=== PATIENT | female | born 1965 | race African-American/Black ===

== ENCOUNTER → 2016-11-14 | Outpatient (CLI) | payer BC ==
--- NOTE | 2016-11-14 13:37 | RAD ---
Left lower extremity venous ultrasound, 11/14/2016 : History: Left calf and knee pain Duplex evaluation including grayscale, color flow and spectral Doppler analysis was performed. The femoral and popliteal veins show no filling defects to suggest DVT. The visualized calf veins are unremarkable. IMPRESSION: There is no sonographic evidence of deep vein thrombosis in the left lower extremity
== END | disposition home or self-care (01) ==
LOC: US 12:01
PROVIDERS: ATTEND Nurse Practitioner Family
DX: M79.605 Pain in left leg (principal)
CPT/HCPCS: 93971

== ENCOUNTER 2017-05-11 19:15 | Emergency (ER) | payer BC | END 2017-05-11 20:20 | disposition left against medical advice (07) | LOC: ER 19:15 | DX: M79.605 Pain in left leg (principal); Z53.21 Procedure and treatment not carried out due to patient leaving prior to being seen by health care provider ==

== ENCOUNTER → 2017-05-14 | Outpatient (CLI) | payer BC ==
--- NOTE | 2017-05-14 13:25 | KCIC ---
Examination: 3 views of the left knee HISTORY: History of left knee pain for 2 months COMPARISON: None available Findings: The alignment of the knee joint grossly appears unremarkable. There is no acute fracture or dislocation identified. No significant knee joint effusion. IMPRESSION: No acute osseous findings Electronically signed by: Bernardino Jama MD (05/14/2017 1:22 PM) [facility]
== END | disposition home or self-care (01) ==
LOC: KCIC 12:53
PROVIDERS: ATTEND Family Medicine
DX: M25.562 Pain in left knee (principal)
CPT/HCPCS: 73562

== ENCOUNTER 2017-06-23 12:13 | Inpatient (IN) | payer BC ==
[~2017-06-23] VITALS: Ht 165.1 cm; Wt 106.7 kg
[2017-06-23] VITALS (9 sets, daily range): BP systolic 111–143; BP diastolic 73–97
[2017-06-23 12:36] LABS: BASO # 0.1 x10^3/uL (0.0-0.2); BASO % 1 % (0-3); EOS % 2 % (0-3); HEMATOCRIT 40.2 % (36.0-47.0); HEMOGLOBIN 13.5 g/dL (12.0-15.5); LYMPH # 3.1 x10^3/uL (1.0-4.8); LYMPH % 39 % (24-48); MEAN CORPUSCULAR HEMOGLOBIN 30 pg (25-35); MEAN CORPUSCULAR HGB CONC 34 g/dL (31-37); MEAN CORPUSCULAR VOLUME 90 fL (79-100); MONO % 6 % (0-9); NEUT % 53 % (31-73); PLATELET COUNT 319 x10^3/uL (140-400); RED BLOOD COUNT 4.48 x10^6/uL (3.50-5.40); RED CELL DISTRIBUTION WIDTH 14.5 % (11.5-14.5); WHITE BLOOD COUNT 7.9 x10^3/uL (4.0-11.0)
--- NOTE | 2017-06-23 12:43 | PHYS DOC ---
Past Medical History Past Medical History: Hypertension Past Medical History Hx of atrial fibrillation Past Surgical History: Tubal ligation Alcohol Use: None Drug Use: None Adult General Chief Complaint Chief Complaint: RAPID HEART RATE HPI HPI Patient is a 51-year-old female who presents with a rapid heart rate. This is a pleasant 51-year-old female who was remote history of atrial fibrillation however is not anticoagulated and usually is in a regular rate she thinks. For the last 7 days she has been feeling a fast heart rate. She takes blood pressure medications including metoprolol however did not take that today. She has had some mild chest pain with it. Some mild shortness of breath. She has been taking lisinopril and amlodipine. She did take an aspirin today. She will see her family doctor today who found her to be in atrial fibrillation with a rapid ventricular response with a heart rate of 140. She was transferred here. The palpitations have been constant. No exacerbating or relieving factors. No radiation. She is not having chest pain currently. Review of Systems Review of Systems Constitutional: Denies fever or chills Eyes: Denies change in visual acuity, redness, or eye pain HENT: Denies nasal congestion or sore throat Respiratory: Denies cough Cardiovascular: No additional information not addressed in HPI GI: Denies abdominal pain, nausea, vomiting, bloody stools or diarrhea : Denies dysuria or hematuria Musculoskeletal: Denies back pain or joint pain; denies peripheral edema. Integument: Denies rash or skin lesions Neurologic: Denies headache, focal weakness or sensory changes Endocrine: Denies polyuria or polydipsia Family History Family History Non contributory Current Medications Current Medications Current Medications Medications (Trade) Dose Ordered Sig/Camacho Start Time Stop Time Status Last Admin Dose Admin Diltiazem HCl 125 mg/Dextrose 125 ml @ 0 mls/hr CONT PRN 06/23/17 12:30 06/23/17 20:36 10 MLS/HR Allergies Allergies Allergies Coded Allergies Type Severity Reaction Last Updated Verified No Known Drug Allergies 06/23/17 No Physical Exam Physical Exam Constitutional: Well developed, well nourished, no acute distress, non-toxic appearance. HENT: Normocephalic, atraumatic, bilateral external ears normal, oropharynx moist, no oral exudates, nose normal. Eyes: PERRLA, EOMI, conjunctiva normal, no discharge. Neck: Normal range of motion, no tenderness, supple, no stridor. Cardiovascular: Irregularly irregular tachycardia with a rate over 100. Lungs & Thorax: Bilateral breath sounds clear to auscultation Abdomen: Bowel sounds normal, soft, no tenderness, no masses, no pulsatile masses. Skin: Warm, dry, no erythema, no rash. Back: No tenderness, no CVA tenderness. Extremities: No tenderness, no cyanosis, no clubbing, ROM intact, no edema. Neurologic: Alert and oriented X 3, normal motor function, normal sensory function, no focal deficits noted. Psychologic: Affect normal, judgement normal, mood normal. Current Patient Data Vital Signs Vital Signs Date Time Temp Pulse Resp B/P (MAP) Pulse Ox O2 Delivery O2 Flow Rate FiO2 06/23/17 13:20 148 16 139/101 (114) 96 Room Air 06/23/17 12:18 98.0 98.0 Lab Values Laboratory Tests Test 06/23/17 12:23 White Blood Count 7.9 x10^3/uL (4.0-11.0) Red Blood Count 4.48 x10^6/uL (3.50-5.40) Hemoglobin 13.5 g/dL (12.0-15.5) Hematocrit 40.2 % (36.0-47.0) Mean Corpuscular Volume 90 fL (79-100) Mean Corpuscular Hemoglobin 30 pg (25-35) Mean Corpuscular Hemoglobin Concent 34 g/dL (31-37) Red Cell Distribution Width 14.5 % (11.5-14.5) Platelet Count 319 x10^3/uL (140-400) Neutrophils (%) (Auto) 53 % (31-73) Lymphocytes (%) (Auto) 39 % (24-48) Monocytes (%) (Auto) 6 % (0-9) Eosinophils (%) (Auto) 2 % (0-3) Basophils (%) (Auto) 1 % (0-3) Neutrophils # (Auto) 4.2 x10^3uL (1.8-7.7) Lymphocytes # (Auto) 3.1 x10^3/uL (1.0-4.8) Monocytes # (Auto) 0.4 x10^3/uL (0.0-1.1) Eosinophils # (Auto) 0.2 x10^3/uL (0.0-0.7) Basophils # (Auto) 0.1 x10^3/uL (0.0-0.2) Sodium Level 142 mmol/L (136-145) Potassium Level 3.7 mmol/L (3.5-5.1) Chloride Level 106 mmol/L (98-107) Carbon Dioxide Level 30 mmol/L (21-32) Anion Gap 6 (6-14) Blood Urea Nitrogen 14 mg/dL (7-20) Creatinine 0.8 mg/dL (0.6-1.0) Estimated GFR (Cockcroft-Gault) 92.2 BUN/Creatinine Ratio 18 (6-20) Glucose Level 112 mg/dL (70-99) H Calcium Level 8.8 mg/dL (8.5-10.1) Total Bilirubin 0.4 mg/dL (0.2-1.0) Aspartate Amino Transferase (AST) 16 U/L (15-37) Alanine Aminotransferase (ALT) 29 U/L (14-59) Alkaline Phosphatase 61 U/L (46-116) Troponin I Quantitative < 0.017 ng/mL (0.000-0.055) Total Protein 7.2 g/dL (6.4-8.2) Albumin 3.5 g/dL (3.4-5.0) Albumin/Globulin Ratio 0.9 (1.0-1.7) L Thyroid Stimulating Hormone (TSH) 3.408 uIU/mL (0.358-3.74) Laboratory Tests 06/23/17 12:23 Laboratory Tests 06/23/17 12:23 EKG EKG This is atrial fibrillation with rate of 143 without acute signs of ischemia. Interpretation Time: 1218 Radiology/Procedures Radiology/Procedures Chest x-ray as interpreted by the radiologist as having no acute abdomen allergies. Impressions: atrial fibrillation with RVR Course & Med Decision Making Course & Med Decision Making Pertinent Labs and Imaging studies reviewed. (See chart for details) Patient has been begun on Cardizem drip. She continues to be tachycardic to bolus will be given. Labs are essentially normal. Discussed with Dr. Llanos at 1: 30 PM who will admit to the [facility]. She remains in stable condition. Dragon Disclaimer Dragon Disclaimer This electronic medical record was generated, in whole or in part, using a voice recognition dictation system. Departure Departure Impression: Primary Impression: Atrial fibrillation with rapid ventricular response Disposition: ADMITTED INPATIENT Admitting Physician: Janeen Llanos Condition: STABLE Referrals: ERROL PRINGLE MD (PCP) AUGUSTA LOPEZ MD Jun 23, 2017 12:43
--- NOTE | 2017-06-23 12:56 | RAD ---
Portable chest, 06/23/2017: History: Chest pain, palpitations Comparison is made to a study from 10/28/2012. The heart size and pulmonary vascularity are normal. The lungs are clear. There is no evidence of pleural fluid. IMPRESSION: No acute cardiopulmonary abnormality is detected.
[2017-06-23 13:04] LABS: ALBUMIN 3.5 g/dL (3.4-5.0); ALBUMIN/GLOBULIN RATIO 0.9 (1.0-1.7); CALCIUM 8.8 mg/dL (8.5-10.1); CREATININE 0.8 mg/dL (0.6-1.0); GFR 92.2; POTASSIUM 3.7 mmol/L (3.5-5.1); TOTAL BILIRUBIN 0.4 mg/dL (0.2-1.0); TOTAL PROTEIN 7.2 g/dL (6.4-8.2)
--- NOTE | 2017-06-23 13:40 | EKG ---
[facility] [address] [place] [address] Test Date: 2017-06-23 Test Time: 12:21:01 Pat Name: CURTIS BUCIO Department: Room: Gender: F Emr Implementation Specialist: : [id number] Requested By: AUGUSTA LPOEZ Order Number: [id number] Reading MD: Markos Yi Measurements Intervals [place] Rate: 143 P: AK: QRS: 2 QRSD: 72 T: -144 QT: 328 QTc: 513 Interpretive Statements afib with rvr lvh Electronically Signed On 06-23-2017 18:13:07 CDT by Markos Yi
[2017-06-23] MEDS ORDERED: dilTIAZem IV PUSH 25 MG/5 ML VIAL IVP ONE (13:45)
--- NOTE | 2017-06-23 15:47 | PDOC2 ---
LAWANDA BAUMAN WASH MILL OPERATOR 06/23/17 1547: CARDIAC CONSULT DATE OF CONSULT Date of Consult DATE: 06/23/17 TIME: 15:44 REASON FOR CONSULT Reason for Consult: new AFIB REFERRING PHYSICIAN Referring Physician: Viet SOURCE Source: Chart review, Patient HISTORY OF PRESENT ILLNESS HISTORY OF PRESENT ILLNESS This is a pleasant 51 yo female admitted for complains of palpitations, fatigue and STANFORD. Reports of mild CP but mainly the latter symptoms. she went to her PCP and was told to come to ED citing that her HR is on AFIB and fast. She has been in denial in the last few weeks and has strong suspicion that her AFIB is back. She did have AFIB in 2012 that spontaneously convert and did not require cardioversion. She took coumadin for about a yr and has not seen a manager combination since 2013. Upon admission AFIB RVR confirmed and was started on cardizem drip. PAST MEDICAL HISTORY Cardiovascular: AFIB, HTN, Hyperlipidemia Pulmonary: No pertinent hx CENTRAL NERVOUS SYSTEM: Other (No pertinent history) GI: Peptic Ulcer disease (7 yrs ago) Heme/Onc: No pertinent hx Hepatobiliary: No pertinent hx Psych: No pertinent hx Musculoskeletal: Osteoarthritis Rheumatologic: No pertinent hx Infectious disease: No pertinent hx ENT: No pertinent hx Renal/: No pertinent hx Endocrine: No pertinent hx Dermatology: No pertinent hx PAST SURGICAL HISTORY Past Surgical History: Tubal Ligation FAMILY HISTORY Family History noncontributory to CV SOCIAL HISTORY Smoke: Quit (3 yrs ) CURRENT MEDICATIONS CURRENT MEDICATIONS Current Medications Medications (Trade) Dose Ordered Sig/Camacho Route PRN Reason Start Time Stop Time Status Last Admin Dose Admin Diltiazem HCl 125 mg/Dextrose 125 ml @ 0 mls/hr CONT PRN IV SEE I/O RECORD 06/23/17 12:30 06/23/17 13:02 Diltiazem HCl (Cardizem) 10 mg 1X ONCE IVP 06/23/17 13:45 06/23/17 13:46 DC 06/23/17 13:44 ALLERGIES ALLERGIES: Coded Allergies: No Known Drug Allergies (Unverified , 06/23/17) ROS Review of System 14 point ROS evaluated with pertinent positives noted per HPI PHYSICAL EXAM General: Alert, Oriented X3, Cooperative, No acute distress HEENT: Atraumatic, Mucous membr. moist/pink Lungs: Clear to auscultation Heart: Normal S1, Normal S2, Other (AFIB RVR) Abdomen: Soft, No tenderness Extremities: No cyanosis, No edema Skin: No breakdown, No significant lesion Neuro: Normal speech, Strength at 5/5 X4 ext, Sensation intact Psych/Mental Status: Mental status NL, Mood NL MUSCULOSKELETAL: Osteoarthritic changes both hands VITALS VITALS Vital Signs Date Time Temp Pulse Resp B/P (MAP) Pulse Ox O2 Delivery O2 Flow Rate FiO2 06/23/17 15:24 98.0 84 19 131/87 (102) 96 Room Air 98.0 LABS Lab: Laboratory Tests Test 06/23/17 12:23 White Blood Count 7.9 x10^3/uL (4.0-11.0) Red Blood Count 4.48 x10^6/uL (3.50-5.40) Hemoglobin 13.5 g/dL (12.0-15.5) Hematocrit 40.2 % (36.0-47.0) Mean Corpuscular Volume 90 fL (79-100) Mean Corpuscular Hemoglobin 30 pg (25-35) Mean Corpuscular Hemoglobin Concent 34 g/dL (31-37) Red Cell Distribution Width 14.5 % (11.5-14.5) Platelet Count 319 x10^3/uL (140-400) Neutrophils (%) (Auto) 53 % (31-73) Lymphocytes (%) (Auto) 39 % (24-48) Monocytes (%) (Auto) 6 % (0-9) Eosinophils (%) (Auto) 2 % (0-3) Basophils (%) (Auto) 1 % (0-3) Neutrophils # (Auto) 4.2 x10^3uL (1.8-7.7) Lymphocytes # (Auto) 3.1 x10^3/uL (1.0-4.8) Monocytes # (Auto) 0.4 x10^3/uL (0.0-1.1) Eosinophils # (Auto) 0.2 x10^3/uL (0.0-0.7) Basophils # (Auto) 0.1 x10^3/uL (0.0-0.2) Sodium Level 142 mmol/L (136-145) Potassium Level 3.7 mmol/L (3.5-5.1) Chloride Level 106 mmol/L (98-107) Carbon Dioxide Level 30 mmol/L (21-32) Anion Gap 6 (6-14) Blood Urea Nitrogen 14 mg/dL (7-20) Creatinine 0.8 mg/dL (0.6-1.0) Estimated GFR (Cockcroft-Gault) 92.2 BUN/Creatinine Ratio 18 (6-20) Glucose Level 112 mg/dL (70-99) Calcium Level 8.8 mg/dL (8.5-10.1) Total Bilirubin 0.4 mg/dL (0.2-1.0) Aspartate Amino Transf (AST/SGOT) 16 U/L (15-37) Alanine Aminotransferase (ALT/SGPT) 29 U/L (14-59) Alkaline Phosphatase 61 U/L (46-116) Troponin I Quantitative < 0.017 ng/mL (0.000-0.055) Total Protein 7.2 g/dL (6.4-8.2) Albumin 3.5 g/dL (3.4-5.0) Albumin/Globulin Ratio 0.9 (1.0-1.7) Thyroid Stimulating Hormone (TSH) 3.408 uIU/mL (0.358-3.74) ASSESSMENT/PLAN ASSESSMENT/PLAN 1. PAFIB RVR: last episode in 2012 with spontaneous conversion and was place on coumadin before. 2. HTN: controlled 3. HLP 4. Past tobaccoism; 20 pk yr quit 3 yrs ago 5. Morbid obesity Recommendations 1. Cardizem drip. Dig IV x1. will restart on metoprolol. 2. lipid panel. TTE tomorrow. 3. Eliquis. If no conversion potentially will consider for NICOLE/CVN as an inpt. Problems: LOREE MARQUEZ MD 06/23/17 1814: CARDIAC CONSULT ALLERGIES ALLERGIES: Coded Allergies: No Known Drug Allergies (Unverified , 06/23/17) ASSESSMENT/PLAN ASSESSMENT/PLAN Pt. seen and examined. Agree with above LOADING DOCK HELPER note. Plan for NICOLE/CVN tomorrow if no spontaneous CVn outpt sleep study. Thanks for consultation. Problems: LAWANDA BAUMAN WASH MILL OPERATOR Jun 23, 2017 15:47 LOREE MARQUEZ MD Jun 23, 2017 18:14
[2017-06-23] MEDS ORDERED: METO100T2 PO (16:22)
[2017-06-23] MEDS ORDERED: LISI-334 PO (16:22)
[2017-06-23] MEDS ORDERED: AMLO5TAB2 PO (16:22)
--- NOTE | 2017-06-23 16:26 | PDOC1 ---
History and Physical Date of Admission Date of Admission DATE: 06/23/17 TIME: 16:25 Identification/Chief Complaint Chief Complaint short of breath Problems: Source Source: Chart review, Patient History of Present Illness History of Present Illness Ms Camejo, is a pleasant 51 yo female admitted for complains of palpitations, fatigue and ST[place]FORD. she has AFIB before 4 years ago, treated at , reverted to sinus, hasbeen following Dr. Loza only for htn, does not have a motorman/woman he reports last time and event happened was when she weighed this much, lost weight before, and has gained it back she has days of worsening dyspnea with palpitations, seen in CV care, on cardizem gtt Past Medical History Cardiovascular: AFIB, HTN, Hyperlipidemia Pulmonary: No pertinent hx CENTRAL NERVOUS SYSTEM: Other (No pertinent history) GI: Peptic Ulcer disease (7 yrs ago) Heme/Onc: No pertinent hx Hepatobiliary: No pertinent hx Psych: No pertinent hx Musculoskeletal: Osteoarthritis Rheumatologic: No pertinent hx Infectious disease: No pertinent hx ENT: No pertinent hx Renal/: No pertinent hx Endocrine: No pertinent hx Dermatology: No pertinent hx Past Surgical History Past Surgical History: Tubal Ligation Family History Family History: Heart Disease Social History Smoke: No (3 yrs ) ALCOHOL: rare Drugs: None Current Problem List Problem List Problems Medical Problems: (1) Atrial fibrillation with rapid ventricular response Status: Acute Problems: Current Medications Current Medications Current Medications Diltiazem HCl 125 mg/Dextrose 125 ml @ 0 mls/hr CONT PRN IV SEE I/O RECORD Last administered on 06/23/17 13:02; Start 06/23/17 at 12:30 Diltiazem HCl (Cardizem) 10 mg 1X ONCE IVP Last administered on 06/23/17t 13: 44; Start 06/23/17 at 13:45; Stop 06/23/17 at 13:46; Status DC Enoxaparin Sodium (Lovenox Per Pharmacy Treatment Dosing) 1 each PRN DAILY PRN MC SEE COMMENTS; Start 06/23/17 at 15:30; Stop 06/23/17 at 16:14; Status DC Enoxaparin Sodium (Lovenox 120mg Syringe) 110 mg Q12HR SQ ; Start 06/23/17 at 16:00; Stop 06/23/17 at 16:14; Status DC Apixaban (Eliquis) 5 mg BID PO ; Start 06/23/17 at 21:00 Digoxin (Lanoxin) 500 mcg 1X ONCE IV ; Start 06/23/17 at 16:30; Stop at 16:31 Metoprolol Tartrate (Lopressor) 25 mg Q6HRS PO ; Start 06/23/17 at 18:00 Info (Anti-Coagulation Monitoring By Pharmacy) 1 each PRN DAILY PRN MC SEE COMMENTS; Start 06/23/17 at 16:30 Active Scripts Active Reported Amlodipine Besylate 5 Mg Tablet 5 Mg PO DAILY Lisinopril 20 Mg Tablet 20 Mg PO DAILY Metoprolol Tartrate 100 Mg Tablet 100 Mg PO DAILY Allergies Allergies: Coded Allergies: No Known Drug Allergies (Unverified , 06/23/17) ROS General: No: Chills, Night Sweats, Fatigue, Malaise, Appetite, Other PSYCHOLOGICAL ROS: YES: Sleep disturbances, Suicidal ideation, No: Anxiety, Behavioral Disorder, Concentration difficultie, Decreased libido , Depression, Disorientation, Hallucinations, Hostility, Irritablity, Memory difficulties, Mood Swings, Obsessive thoughts, Other Eyes: Yes Uses glasses, No Blurry vision, No Decreased vision, No Double vision, No Dry eyes, No Excessive tearing, No Eye Pain, No Itchy Eyes, No Loss of vision, No Photophobia , No Scotomata, No Other HEENT: No: Heacaches, Visual Changes, Hearing change, Nasal congestion, Nasal discharge, Oral lesions, Sinus pain, Sore Throat, Epistaxis, Sneezing, Snoring, Tinnitus, Vertigo, Vocal changes, Other Hematological and Lymphatic: No: Bleeding Problems, Blood Clots, Blood Transfusions, Brusing, Night Sweats, Pallor, Swollen Lymph Nodes, Other ENDOCRINE: No: Breast Changes, Galactorrhea, Hair Pattern Changes, Hot Flashes , Malaise/lethargy, Mood Swings, Palpitations, Polydipsia/polyuria, Skin Changes , Temperature Intolerance, Unexpected Weight Changes, Other Respiratory: YES: Shortness of breath, SOB with excertion, No: Cough, Hemoptysis, Orthopnea, Pleuritic Pain, Sputum Changes, Stridor, Tachypnea, Wheezing, Other Cardiovascular: yes Chest Pain, yes Palpitations, yes Edema, No Orthopnea, No Paroxysmal Noc. Dyspnea, No Lt Headedness, No Other Genitourinary: No Dysuria, No Frequency, No Incontinence, No Hematuria, No Retention, No Discharge, No Urgency, No Pain, No Flank Pain, No Other, No , No , No , No , No , No , No Musculoskeletal: No Gait Disturbance, No Joint Pain, No Joint Stiffness, No Joint Swelling, No Muscle Pain, No Muscular Weakness, No Pain In:, No Swelling In:, No Other Neurological: No Behavorial Changes, No Bowel/Bladder ControlChng, No Confusion , No Dizziness, No Gait Disturbance, No Headaches, No Impaired Coord/balance, No Memory Loss, No Numbness/Tingling, No Seizures, No Speech Problems, No Tremors, No Visual Changes, No Weakness, No Other Physical Exam General: Alert, Oriented X3, Cooperative, mild distress HEENT: EOMI, Mucous membr. moist/pink Heart: no gallops, no murmurs, irregularly irregular Abdomen: Normal bowel sounds (obese), Soft Rectal Exam: not examined PELVIC: Nml ext cervic Extremities: No cyanosis, No edema Neuro: Normal speech, Normal tone, Sensation intact Psych/Mental Status: Mood NL Vitals Vitals Vital Signs Date Time Temp Pulse Resp B/P (MAP) Pulse Ox O2 Delivery O2 Flow Rate FiO2 06/23/17 16:09 118 19 143/97 (112) 96 Room Air 06/23/17 15:24 98.0 98.0 Labs Labs Laboratory Tests Test 06/23/17 12:23 White Blood Count 7.9 x10^3/uL (4.0-11.0) Red Blood Count 4.48 x10^6/uL (3.50-5.40) Hemoglobin 13.5 g/dL (12.0-15.5) Hematocrit 40.2 % (36.0-47.0) Mean Corpuscular Volume 90 fL (79-100) Mean Corpuscular Hemoglobin 30 pg (25-35) Mean Corpuscular Hemoglobin Concent 34 g/dL (31-37) Red Cell Distribution Width 14.5 % (11.5-14.5) Platelet Count 319 x10^3/uL (140-400) Neutrophils (%) (Auto) 53 % (31-73) Lymphocytes (%) (Auto) 39 % (24-48) Monocytes (%) (Auto) 6 % (0-9) Eosinophils (%) (Auto) 2 % (0-3) Basophils (%) (Auto) 1 % (0-3) Neutrophils # (Auto) 4.2 x10^3uL (1.8-7.7) Lymphocytes # (Auto) 3.1 x10^3/uL (1.0-4.8) Monocytes # (Auto) 0.4 x10^3/uL (0.0-1.1) Eosinophils # (Auto) 0.2 x10^3/uL (0.0-0.7) Basophils # (Auto) 0.1 x10^3/uL (0.0-0.2) Sodium Level 142 mmol/L (136-145) Potassium Level 3.7 mmol/L (3.5-5.1) Chloride Level 106 mmol/L (98-107) Carbon Dioxide Level 30 mmol/L (21-32) Anion Gap 6 (6-14) Blood Urea Nitrogen 14 mg/dL (7-20) Creatinine 0.8 mg/dL (0.6-1.0) Estimated GFR (Cockcroft-Gault) 92.2 BUN/Creatinine Ratio 18 (6-20) Glucose Level 112 mg/dL (70-99) Calcium Level 8.8 mg/dL (8.5-10.1) Total Bilirubin 0.4 mg/dL (0.2-1.0) Aspartate Amino Transf (AST/SGOT) 16 U/L (15-37) Alanine Aminotransferase (ALT/SGPT) 29 U/L (14-59) Alkaline Phosphatase 61 U/L (46-116) Troponin I Quantitative < 0.017 ng/mL (0.000-0.055) Total Protein 7.2 g/dL (6.4-8.2) Albumin 3.5 g/dL (3.4-5.0) Albumin/Globulin Ratio 0.9 (1.0-1.7) Thyroid Stimulating Hormone (TSH) 3.408 uIU/mL (0.358-3.74) Laboratory Tests Test 06/23/17 12:23 White Blood Count 7.9 x10^3/uL (4.0-11.0) Red Blood Count 4.48 x10^6/uL (3.50-5.40) Hemoglobin 13.5 g/dL (12.0-15.5) Hematocrit 40.2 % (36.0-47.0) Mean Corpuscular Volume 90 fL (79-100) Mean Corpuscular Hemoglobin 30 pg (25-35) Mean Corpuscular Hemoglobin Concent 34 g/dL (31-37) Red Cell Distribution Width 14.5 % (11.5-14.5) Platelet Count 319 x10^3/uL (140-400) Neutrophils (%) (Auto) 53 % (31-73) Lymphocytes (%) (Auto) 39 % (24-48) Monocytes (%) (Auto) 6 % (0-9) Eosinophils (%) (Auto) 2 % (0-3) Basophils (%) (Auto) 1 % (0-3) Neutrophils # (Auto) 4.2 x10^3uL (1.8-7.7) Lymphocytes # (Auto) 3.1 x10^3/uL (1.0-4.8) Monocytes # (Auto) 0.4 x10^3/uL (0.0-1.1) Eosinophils # (Auto) 0.2 x10^3/uL (0.0-0.7) Basophils # (Auto) 0.1 x10^3/uL (0.0-0.2) Sodium Level 142 mmol/L (136-145) Potassium Level 3.7 mmol/L (3.5-5.1) Chloride Level 106 mmol/L (98-107) Carbon Dioxide Level 30 mmol/L (21-32) Anion Gap 6 (6-14) Blood Urea Nitrogen 14 mg/dL (7-20) Creatinine 0.8 mg/dL (0.6-1.0) Estimated GFR (Cockcroft-Gault) 92.2 BUN/Creatinine Ratio 18 (6-20) Glucose Level 112 mg/dL (70-99) Calcium Level 8.8 mg/dL (8.5-10.1) Total Bilirubin 0.4 mg/dL (0.2-1.0) Aspartate Amino Transf (AST/SGOT) 16 U/L (15-37) Alanine Aminotransferase (ALT/SGPT) 29 U/L (14-59) Alkaline Phosphatase 61 U/L (46-116) Troponin I Quantitative < 0.017 ng/mL (0.000-0.055) Total Protein 7.2 g/dL (6.4-8.2) Albumin 3.5 g/dL (3.4-5.0) Albumin/Globulin Ratio 0.9 (1.0-1.7) Thyroid Stimulating Hormone (TSH) 3.408 uIU/mL (0.358-3.74) VTE Prophylaxis Ordered VTE Prophylaxis Devices: No VTE Pharmacological Prophylaxi: Yes Assessment/Plan Assessment/Plan acute diastolic CHF exacerbation afib with RVR, recurrence of previous - had been in sinus rhythm for maybe 4 years CV team started eliquis obesity, BMI 40 chronic htn disease, hold norvasc and lisinopril BRENDA BACK MD Jun 23, 2017 16:26
[2017-06-23] MEDS ORDERED: DIGOXIN IV 500 MCG/2 ML AMPUL. IV ONE (16:30)
[2017-06-23] MEDS ORDERED: ANTI-COAG MONITOR BY PHARMACY. MC PRN (16:30)
[2017-06-23] MEDS: METOPROLOL TART IMMED RELEASE 25 MG TABLET. PO SCH ×2 (16:50→23:39)
[2017-06-23] MEDS: APIXABAN 5 MG TABLET. PO SCH (20:36)
[2017-06-24] VITALS (14 sets, daily range): BP systolic 102–146; BP diastolic 65–102
[2017-06-24 02:28] LABS: ALBUMIN 3.2 g/dL (3.4-5.0); ALBUMIN/GLOBULIN RATIO 0.9 (1.0-1.7); CALCIUM 8.7 mg/dL (8.5-10.1); CREATININE 0.8 mg/dL (0.6-1.0); GFR 92.2; MAGNESIUM 2.1 mg/dL (1.8-2.4); POTASSIUM 3.9 mmol/L (3.5-5.1); TOTAL BILIRUBIN 0.4 mg/dL (0.2-1.0); TOTAL PROTEIN 6.6 g/dL (6.4-8.2)
[2017-06-24 02:33] LABS: CHOLESTEROL/HDL RATIO 4.1
[2017-06-24 02:58] LABS: BASO % 1 % (0-3); EOS % 2 % (0-3); HEMATOCRIT 38.8 % (36.0-47.0); HEMOGLOBIN 12.9 g/dL (12.0-15.5); LYMPH % 44 % (24-48); MEAN CORPUSCULAR HEMOGLOBIN 30 pg (25-35); MEAN CORPUSCULAR HGB CONC 33 g/dL (31-37); MEAN CORPUSCULAR VOLUME 90 fL (79-100); MONO % 6 % (0-9); NEUT % 48 % (31-73); PLATELET COUNT 307 x10^3/uL (140-400); RED CELL DISTRIBUTION WIDTH 14.5 % (11.5-14.5); WHITE BLOOD COUNT 9.1 x10^3/uL (4.0-11.0)
[2017-06-24 03:06] LABS: INR 1.2 (0.8-1.1); PROTHROMBIN TIME PATIENT 14.8 SEC (11.7-14.0)
[2017-06-24] MEDS: METOPROLOL TART IMMED RELEASE 25 MG TABLET. PO SCH ×2 (05:39→12:00)
[2017-06-24] MEDS: APIXABAN 5 MG TABLET. PO SCH ×2 (07:57→21:27)
[2017-06-24] MEDS: POTASSIUM CHLORIDE 20 MEQ TABLET.ER. PO SCH (07:57)
[2017-06-24] MEDS ORDERED: 0.9 % SODIUM CHLORIDE 10 ML DISP.SYRIN. IV PRN (08:15)
[2017-06-24] MEDS ORDERED: PROPOFOL 20 ML IV ONE (11:26)
[2017-06-24] MEDS ORDERED: BENZOCAINE ONE 20% MUCOSAL SPRAY. (11:34)
[2017-06-24] MEDS ORDERED: LIDOCAINE 2% TOPICAL JELLY 30GM TUBE. TP ONE ×2 (11:35→11:45)
[2017-06-24] MEDS ORDERED: LIDOCAINE 2% VISCOUS 15 ML SOLUTION. ONE (11:35)
[2017-06-24] MEDS ORDERED: BENZOCAINE ONE 20% MUCOSAL SPRAY. MM (11:45)
[2017-06-24] MEDS ORDERED: LIDOCAINE 2% VISCOUS 15 ML SOLUTION. SWSW ONE (11:45)
[2017-06-24] MEDS ORDERED: PROPOFOL 10 MG/ML (20ML) VIAL. IV ONE (12:00)
[2017-06-24] MEDS ORDERED: LIDOCAINE 2% 100 MG/5 ML SYRINGE. ONE (12:00)
--- NOTE | 2017-06-24 12:32 | PDOC4 ---
PROCEDURE Procedure PROCEDURE Transesophageal esophageal echocardiogram guided cardioversion INDICATIONS Atrial fibrillation with rapid ventricular response PERFORMING physician Dr. Albarado COMPLICATIONS None PROCEDURE details An informed consent was obtained from patient. Anesthesiology team induced deep sedation using intravenous propofol. A transesophageal echocardiogram probe was inserted and standard tomographic images were obtained. Intracardiac thrombus was ruled out. Patient was then administered 200 J of synchronized biphasic DC shock therapy twice with successful conversion of patient's rhythm from atrial fibrillation to sinus rhythm. Patient tolerated the procedure well. She was hemodynamically stable without any neurological deficits at the end of procedure. CONCLUSIONS Successful NICOLE guided cardioversion of atrial fibrillation to sinus rhythm. GRAYSON ALBARADO MD Jun 24, 2017 12:32
--- NOTE | 2017-06-24 13:57 | EKG ---
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
--- NOTE | 2017-06-24 14:01 | CARD ---
APPROVED REPORT EXAM: Transesophageal echocardiogram with color flow Doppler and Synchronized Cardioversion. INDICATION Atrial Fibrillation Reason For Test : Rule out Intracardiac Thrombus. PROCEDURE After obtaining informed consent, patient underwent transesophageal echo in the PACU. Type of Sedation : General Anesthesia Sedation was administered by Ryan Cifuentes. Sedation was achieved with Propofol 280mg intravenously. Sedation was achieved with Lidocaine 40mg intravenously. Transesophageal probe was inserted and advanced into esophagus by Jose Angel Yi MD. The NICOLE was performed without complications. Synchronized Cardioversion attempted: Successful Synchronized Cardioversion acheived with 200 Joules after 2 attempt(s). Rhythm following Synchronized Cardioversion: Normal Sinus Rhythm Throughout the procedure, the blood pressure, pulse oximetry, cardiac rhythm, and rate were monitored . The patient tolerated the procedure without adverse effects. Recovery from conscious sedation was une ventful and vital signs were stable. LEFT VENTRICLE The left ventricle is normal size. There is normal left ventricular wall thickness. Left ventricle sy stolic function is mildly impaired. The Ejection Fraction is 45%. There is global hypokinesis of the left ventricle. RIGHT VENTRICLE The right ventricle is normal size. The right ventricular systolic function is normal. ATRIA The left atrium size is normal. The right atrium size is normal. The interatrial septum is intact wit h no evidence for an atrial septal defect or patent foramen ovale as noted on 2-D or Doppler imaging. There is no thrombus noted in the left atrial appendage. AORTIC VALVE The aortic valve is normal in structure and function. The aortic valve is trileaflet. Doppler and Col or Flow revealed no significant aortic regurgitation. There is no significant aortic valvular stenosi s. MITRAL VALVE The mitral valve is normal in structure. Doppler and Color Flow revealed mild mitral regurgitation. TRICUSPID VALVE The tricuspid valve is normal in structure. Doppler and Color Flow revealed mild to moderate tricuspi d regurgitation. PULMONIC VALVE The pulmonary valve is normal in structure and function. Doppler and Color Flow revealed no pulmonic valvular regurgitation. GREAT VESSELS The aortic root is normal in size. The ascending aorta is normal in size. Normal pulmonary venous clarke w (Doppler). The IVC was visualized and appears normal in size. The SVC was visualized and appears no rmal in size. PERICARDIAL EFFUSION There is no evidence of significant pericardial effusion. There is no pleural effusion. Critical Notification Critical Value: No <Conclusion> Left ventricle systolic function is mildly impaired. The Ejection Fraction is 45%. Mild mitral regurgitation. Mild to moderate tricuspid regurgitation. There is no evidence of significant pericardial effusion. There is no thrombus noted in the left atrial appendage. Cardioversion with 200 J synchronized biphasic DC current successful with conversion of atrial fibril lation to sinus rhythm.
--- NOTE | 2017-06-24 16:27 | PDOC ---
PROGRESS NOTES Chief Complaint Chief Complaint Palpitations ASSESSMENT AND PLAN: 1. Afib/RVR: s/p cardioversion today. continue med regimen as per cardiology 2. CHF exacerbation: systolic with EF 45%. clinically improved. 3. OAC: on eliquis for at least 1 month; cardiology to determine long-term need 4. HTN: on lisinopril, norvasc at home, currently on hold in favor of BB. 5. Morbid obesity: BMI 40 History of Present Illness History of Present Illness s/p cardioversion. no palpitations, CP or SOB Vitals Vitals Vital Signs Date Time Temp Pulse Resp B/P (MAP) Pulse Ox O2 Delivery O2 Flow Rate FiO2 06/24/17 14:30 54 20 144/99 (114) 96 Room Air 06/24/17 12:57 97.4 97.4 06/24/17 12:34 2 Physical Exam General: Alert, Oriented X3, Cooperative, No acute distress Heart: Regular rate, Other (AFIB RVR) Abdomen: Normal bowel sounds, Soft, No tenderness Extremities: No edema Skin: No rashes Labs LABS Laboratory Tests Test 06/23/17 19:55 06/24/17 01:45 Troponin I Quantitative < 0.017 ng/mL (0.000-0.055) < 0.017 ng/mL (0.000-0.055) White Blood Count 9.1 x10^3/uL (4.0-11.0) Red Blood Count 4.30 x10^6/uL (3.50-5.40) Hemoglobin 12.9 g/dL (12.0-15.5) Hematocrit 38.8 % (36.0-47.0) Mean Corpuscular Volume 90 fL (79-100) Mean Corpuscular Hemoglobin 30 pg (25-35) Mean Corpuscular Hemoglobin Concent 33 g/dL (31-37) Red Cell Distribution Width 14.5 % (11.5-14.5) Platelet Count 307 x10^3/uL (140-400) Neutrophils (%) (Auto) 48 % (31-73) Lymphocytes (%) (Auto) 44 % (24-48) Monocytes (%) (Auto) 6 % (0-9) Eosinophils (%) (Auto) 2 % (0-3) Basophils (%) (Auto) 1 % (0-3) Neutrophils # (Auto) 4.3 x10^3uL (1.8-7.7) Lymphocytes # (Auto) 4.0 x10^3/uL (1.0-4.8) Monocytes # (Auto) 0.6 x10^3/uL (0.0-1.1) Eosinophils # (Auto) 0.1 x10^3/uL (0.0-0.7) Basophils # (Auto) 0.0 x10^3/uL (0.0-0.2) Prothrombin Time 14.8 SEC (11.7-14.0) Prothromb Time International Ratio 1.2 (0.8-1.1) Sodium Level 141 mmol/L (136-145) Potassium Level 3.9 mmol/L (3.5-5.1) Chloride Level 106 mmol/L (98-107) Carbon Dioxide Level 31 mmol/L (21-32) Anion Gap 4 (6-14) Blood Urea Nitrogen 12 mg/dL (7-20) Creatinine 0.8 mg/dL (0.6-1.0) Estimated GFR (Cockcroft-Gault) 92.2 BUN/Creatinine Ratio 15 (6-20) Glucose Level 102 mg/dL (70-99) Calcium Level 8.7 mg/dL (8.5-10.1) Magnesium Level 2.1 mg/dL (1.8-2.4) Total Bilirubin 0.4 mg/dL (0.2-1.0) Aspartate Amino Transf (AST/SGOT) 12 U/L (15-37) Alanine Aminotransferase (ALT/SGPT) 25 U/L (14-59) Alkaline Phosphatase 58 U/L (46-116) Total Protein 6.6 g/dL (6.4-8.2) Albumin 3.2 g/dL (3.4-5.0) Albumin/Globulin Ratio 0.9 (1.0-1.7) Triglycerides Level 73 mg/dL (0-150) Cholesterol Level 203 mg/dL (0-200) LDL Cholesterol, Calculated 139 mg/dL (0-100) VLDL Cholesterol, Calculated 15 mg/dL (0-40) Non-HDL Cholesterol Calculated 154 mg/dL (0-129) HDL Cholesterol 49 mg/dL (40-60) Cholesterol/HDL Ratio 4.1 JUAN CARLOS YAO MD Jun 24, 2017 16:27
[2017-06-24] MEDS: METOPROLOL SUCC 24HR ER 100 MG TAB.ER.24H. PO SCH (16:33)
[2017-06-24] MEDS ORDERED: ATORVASTATIN CALCIUM 20 MG TABLET PO SCH (21:00)
[2017-06-25 03:30] VITALS: BP 137/99
[2017-06-25 07:00] VITALS: BP 156/100
[2017-06-25] MEDS ORDERED: METOPROLOL SUCC 24HR ER 100 MG TAB.ER.24H. PO SCH (09:00)
[2017-06-25] MEDS ORDERED: REGADENOSON 0.4 MG/5 ML DISP.SYRIN. IV ONE (09:45)
[2017-06-25 10:43] VITALS: BP 155/99
[2017-06-25] MEDS: APIXABAN 5 MG TABLET. PO SCH (12:08)
[2017-06-25] MEDS: POTASSIUM CHLORIDE 20 MEQ TABLET.ER. PO SCH (12:08)
[2017-06-25] MEDS: METOPROLOL SUCC 24HR ER 100 MG TAB.ER.24H. PO SCH (12:09)
--- NOTE | 2017-06-25 12:22 | RAD ---
APPROVED REPORT Test Type: Pharmacological Stress Nurse/Tech: Justine Kam R.N. Test Indications: a fib RVR Cardiac History: afib, htn, Medications: see ehr Medical History: see ehr Resting ECG: sr Resting Heart Rate: 63 bpm Resting Blood Pressure: 140/81mmHg Pretest Chest Pain: No chest pain Nurse/Tech Notes lungs cta, heart tones regular Consent: The procedure was explained to the patient in lay terms. Informed consent was witnessed. Victoriano eout was entered into [employer]. History and Stress Test performed by EDMUNDO Saenz, GIRISH (R) (N) Pharm. Details Pharmacologic stress testing was performed using 0.4mg per 5ml of regadenoson given intravenously ove r 7-10 seconds. Stress Symptoms No chest pain or symptoms. POST EXERCISE Reason for Termination: Infusion complete Target HR: No Max HR: 104 bpm Max Blood Pressure: 115/62mmHg Chest Pain: No. Arrhythmia: No. ST Change: No. INTERPRETATION Stress EKG Conclusion: No evidence of stress induced EKG changes. Imaging Protocol IMAGE PROTOCOL: Stress Tc-99m/rest Tc-99m 2 days Rest: Stress: Viability: Radiopharm.Tc99m Sestamibi [id number] Duration 12min. Img Date 06/25/2017 Inj-Img [id number]. Stress Admin Site: IV - Left AntecubitalAdministrator: EDMUNDO Saenz, GIRISH (R)(N) STRESS DATA End Diast. Vol.156.0mlAv. Heart Rate75.0bpm End Syst. Vol.75.0mlCO Index BSA0.0L/min Myocardial Tfzu252.0gEject. Gslqqgyo91.0% Stress Rates Pk. Fill Rate2.32EDV/secLVtime Pk. Fill 221.30msec Pk. Empty Rate2.66ESV/secLVtime Pk. Jijul519.96msec 1/3 Pk. Fill0.52EDV/sec Stress Scores Regional WT1.00Summed WT10.00 Regional WM1.00Summed WM13.00 LV Perfusion Normal perfusion at stress. Wall Motion Normal wall motion. EF 55% LV Perf. Quant 17 Seg. SSS1.00 Stress Defect Extent (% LAD)0.00Rest Defect Extent (% LAD)Rev. Defect Extent (% LAD)0.00 Stress Defect Extent (% LCX) 0.00Rest Defect Extent (% LCX)Rev. Defect Extent (% LCX)0.00 Stress Defect Extent (% RCA)0.00Rest Defect Extent (% RCA)Rev. Defect Extent (% RCA)0.00 Stress Defect Extent (% LESLEY)0.40Rest Defect Extent (% LESLEY)Rev. Defect Extent (% LESLEY)0.00 Other Information Quality:Good Risk Assessment: Low Risk Conclusion 1. No evidence of stress induced EKG changes 2. Normal perfusion at stress 3. Low risk study 4. Low normal EF at 55%
[2017-06-25] MEDS ORDERED: METO200T5 PO (12:30)
[2017-06-25] MEDS ORDERED: ASPI325T8 PO (12:30)
[2017-06-25] MEDS ORDERED: ATOR20TA58 PO (12:30)
--- NOTE | 2017-06-25 14:43 | PDOC ---
LAWANDA BAUMAN APRN 06/25/17 1443: CARDIO Progress Notes Date and Time Date of Service 06/25/2017 Time of Evaluation 1150 Subjective Subjective: No Chest Pain, No shortness of breath, No Palpitations, No Dizziness, Other (doing much better) Vitals Vitals Vital Signs Date Time Temp Pulse Resp B/P (MAP) Pulse Ox O2 Delivery O2 Flow Rate FiO2 06/25/17 12:09 70 155/99 06/25/17 10:43 98.6 18 96 Room Air 98.6 06/24/17 12:34 2 Weight Weight [ ] Input and Output Intake and Output Intake and Output 06/26/17 07:00 Output Total 200 ml Balance -200 ml Output Urine Total 200 ml Physical Exam HEENT: Neck Supple W Full Motion Chest: Symmetric LUNGS: Clear to Auscultation Heart: S1S2, RRR (SR), irregularly irregular Abdomen: Soft N/T Extremities: No Calf Tenderness Neurology: alert, oriented, follow commands Assessment Assessment 1. PAFIB RVR: Post NICOLE/CVN maintain SR. Mildly impaired LV systolic function 2. HTN: mildly elevated 3. HLP 4. Past tobaccoism; 20 pk yr quit 3 yrs ago 5. Morbid obesity Recommendations 1. Continue with toprol XL 150 mg and eliquis. Will add low dose lisinopril and titrate up per BP trend 2. MPI pending today. 3. Continue statin therapy. 4. Lifetyle modification 5. Consider ROXANNA outpt w/u 6. Will consider for Outpt event monitor and to note afib burden LOREE MARQUEZ MD 06/25/17 2332: CARDIO Progress Notes Plan Plan Pt. seen and examined. 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 MPI negative. f/u in the office in 4 weeks. LAWANDA BAUMAN APRN Jun 25, 2017 14:43 LOREE MARQUEZ MD Jun 25, 2017 23:32
[2017-06-25 15:00] VITALS: BP 147/88
[2017-06-25] MEDS ORDERED: LISINOPRIL 10 MG TABLET PO SCH (15:00)
[2017-06-25 16:42] VITALS: BP 147/88
== END 2017-06-25 18:00 | disposition home or self-care (01) | DRG 308 ==
LOC: ER 12:13 → 2 SOUTH 13:33
PROVIDERS: ADMIT Internal Medicine; ATTEND Internal Medicine
PROC: 5A2204Z Restoration of Cardiac Rhythm, Single (ICD-10-PCS; principal; 2017-06-24 12:00)
PROC: B246ZZ4 Ultrasonography of Right and Left Heart, Transesophageal (ICD-10-PCS; 2017-06-24 12:00)
DX: I48.91 Unspecified atrial fibrillation (principal); I50.43 Acute on chronic combined systolic (congestive) and diastolic (congestive) heart failure; Z68.41 Body mass index [BMI] 40.0-44.9, adult; I11.0 Hypertensive heart disease with heart failure; E66.01 Morbid (severe) obesity due to excess calories; E78.5 Hyperlipidemia, unspecified; Z79.899 Other long term (current) drug therapy; Z87.11 Personal history of peptic ulcer disease; Z87.891 Personal history of nicotine dependence
CPT/HCPCS: 36415; 71010; 78452; 80053; 80061; 83735; 84443; 84484; 85025; 85610; 92960; 93005; 93017; 93312; 93320; 93325; 96374; 96375; A9500; J1160; J2704; J2785; J3490; 99285-25

== ENCOUNTER → 2017-09-24 | Outpatient (CLI) | payer BC | END | disposition home or self-care (01) | LOC: US 08:04 | DX: R60.0 Localized edema (principal); G47.33 Obstructive sleep apnea (adult) (pediatric) | CPT/HCPCS: 93970 ==

== ENCOUNTER → 2017-09-24 | Outpatient (CLI) | payer BC ==
[2017-09-24] MEDS: ZOLPIDEM 5 MG TABLET. PO ×2 (22:00)
== END | disposition home or self-care (01) ==
LOC: SLPLAB 18:54
DX: G47.33 Obstructive sleep apnea (adult) (pediatric) (principal)
CPT/HCPCS: 95810

== ENCOUNTER → 2017-11-18 | Outpatient (CLI) | payer BC ==
[2017-11-18] MEDS: ZOLPIDEM 5 MG TABLET. PO (21:00)
== END | disposition home or self-care (01) ==
LOC: RT 20:35
DX: G47.33 Obstructive sleep apnea (adult) (pediatric) (principal); I10 Essential (primary) hypertension; E66.01 Morbid (severe) obesity due to excess calories
CPT/HCPCS: 95811

== ENCOUNTER 2019-03-27 13:20 | Emergency (ER) | payer BC ==
[~2019-03-27] VITALS: Ht 165.1 cm; Wt 102.1 kg
[~2019-03-27 13:20] MED LIST: AMLO5TAB10 PO; ASPI325T8 PO; ATOR20TA58 PO; LISI-334 PO; METO100T7 PO; METO200T46 PO
[2019-03-27 13:35] VITALS: BP 130/94
[2019-03-27] MEDS ORDERED: ORPH100T PO (14:05)
[2019-03-27] MEDS ORDERED: HYDR-3164 PO (14:05)
--- NOTE | 2019-03-27 14:05 | PHYS DOC ---
Past Medical History Past Medical History: Hypertension Past Surgical History: Tubal ligation Alcohol Use: None Drug Use: None Adult General Chief Complaint Chief Complaint: LOWER BACK PAIN OR INJURY HPI HPI 53-year-old female presents to ER via POV for complaints of lower back pain started a couple of days ago after lifting heavy bags of ice. Pt denies falls or direct traumatic injury to lower back. Patient states she has been taking Tylenol as she is limited in what she can take due to gastric surgery. Patient denies any numbness or tingling, swelling, or skin discoloration in bilateral lower extremities. She denies any saddle anesthesia, urinary symptoms, or incontinence. Review of Systems Review of Systems Constitutional: Denies fever/weakness Eyes: Denies change in visual acuity, redness, or eye pain [] HENT: Denies nasal congestion or sore throat [] Respiratory: Denies cough or shortness of breath [] Cardiovascular: Denies CP/palpitations GI: Denies abdominal pain, nausea, vomiting, bloody stools or diarrhea. Denies incontinence/saddle anesth. : Denies dysuria or hematuria [] Musculoskeletal: Denies joint pain. Reports low back pain across from side to side Integument: Denies rash, swelling or skin lesions [] Neurologic: Denies headache, focal weakness or sensory changes. Denies dizziness All other systems were reviewed and found to be within normal limits, except as documented in this note. Current Medications Current Medications Current Medications Medications (Trade) Dose Ordered Sig/Camacho Start Time Stop Time Status Last Admin Dose Admin Lidocaine (Lidoderm) 1 patch 1X ONCE 03/27/19 14:15 03/27/19 14:16 DC 03/27/19 14:09 1 PATCH Allergies Allergies Allergies Coded Allergies Type Severity Reaction Last Updated Verified rivaroxaban Allergy Intermediate 03/27/19 Yes Physical Exam Physical Exam Constitutional: Well developed, well nourished, no acute distress, non-toxic appearance. Steady unassisted gait in rm HENT: Normocephalic, atraumatic, oropharynx moist, nose normal. [] Eyes: Pupils equal, conjunctiva normal, no discharge. [] Neck: Normal range of motion, no tenderness, supple, no stridor. [] Cardiovascular: Heart rate regular rhythm, no murmur [] Lungs & Thorax: Bilateral breath sounds clear to auscultation- resp. equal/nonlabored Abdomen: Bowel sounds normal, soft, no tenderness Skin: Warm, dry, no erythema, no rash. [] Back: No tenderness mid line spine or palp. deformity- tender on lateral lower back without swelling/skin discoloration, no CVA tenderness. [] Extremities: No tenderness, no cyanosis, no clubbing, ROM intact, no edema. 2+ bilat. dorsalis pedis/posterior tibial. Calf size symmetric/nontender Neurologic: Alert and oriented X 3, normal motor function, normal sensory function, no focal deficits noted. [] Psychologic: Affect normal, judgement normal, mood normal. [] Current Patient Data Vital Signs Vital Signs Date Time Temp Pulse Resp B/P (MAP) Pulse Ox O2 Delivery O2 Flow Rate FiO2 03/27/19 13:35 97.9 82 16 130/94 (106) 96 Room Air 97.9 EKG EKG [] Radiology/Procedures Radiology/Procedures [] Course & Med Decision Making Course & Med Decision Making Patient was evaluated in the ER for complaints of lower back pain following heavy lifting of ice bags a couple of days ago. Patient was PMS intact in bilateral lower extremities with steady unassisted gait. Lidoderm patch applied to lower back where focal tenderness was. She had no midline spinal tenderness or palpable deformity on exam. Patient had no complaints of urinary symptoms and denied any saddle anesthesia or incontinence. Patient stated she was going to [facility] so she didn't want any sedative type medications so prescriptions for Norflex and [place] will be provided with discharge paperwork. Patient was educated on of risk of sedative type medications and to try 1 prescription to evaluate effectiveness prior to adding second prescription. Education provided on signs and symptoms to return to ER. Discharge instructions were discussed. Patient to follow-up with primary care physician if symptoms persist or with any concerns. [] Dragon Disclaimer Dragon Disclaimer This electronic medical record was generated, in whole or in part, using a voice recognition dictation system. Departure Departure Impression: Primary Impression: Back pain Disposition: HOME, SELF-CARE Condition: STABLE Referrals: ERROL PRINGLE MD (PCP) Patient Instructions: Back Pain, Adult Additional Instructions: Ice and/or heat compress to affected area every 3-4 hours for 20-30 minutes at a time. Avoid direct ice contact with skin. Zobz-xgj-skiybqz topical sports creams such as icy hot as directed on container. You can take uzxp-cqi-iwaorld Tylenol as directed on container. If you are taking the prescribed [place] tablets avoid extra Tylenol. If symptoms persist or worsen follow-up with your primary care physician for reevaluation and further care. Scripts Hydrocodone/Apap 5-325 (NORCO 5-325 TABLET) 1 Each Tablet 1 TAB PO PRN Q6HRS PRN for PAIN, #10 TAB 0 Refills Avoid driving and drinking alcohol while taking this medication Prov: REBEL MÁRQUEZ APRN 03/27/19 Orphenadrine Citrate (ORPHENADRINE CITRATE) 100 Mg Tablet.er 1 TAB PO BID PRN for PAIN, #10 TAB 0 Refills Avoid driving and drinking alcohol while taking this medication Prov: REBEL MÁRQUEZ APRN 03/27/19 REBEL MÁRQUEZ APRN Mar 27, 2019 14:05
[2019-03-27] MEDS ORDERED: LIDOCAINE (700MG/PATCH) PATCH. TD ONE (14:15)
== END 2019-03-27 14:41 | disposition home or self-care (01) ==
LOC: ER 13:20
DX: M54.5 Low back pain (principal); I10 Essential (primary) hypertension; Z98.51 Tubal ligation status; Z88.8 Allergy status to other drugs, medicaments and biological substances
CPT/HCPCS: 99283

== ENCOUNTER → 2020-08-03 | Outpatient (CLI) | payer BC ==
[~2020-08-03] MED LIST changes: +AMLO-186 PO; -AMLO5TAB10 PO; +HYDR-3164 PO; +ORPH100T PO
--- NOTE | 2020-08-03 18:39 | KCIC ---
BILATERAL SCREENING MAMMOGRAM History: Routine screening. Comparison: None available. Interpreted as new baseline. Technique: Routine bilateral digital mammogram views were obtained. Findings: Breast Tissue Density B : There are scattered areas of fibroglandular density. There is a 9 mm mass in the left breast 2:00 A position. There is a 4 mm mass versus tortuous vessel in the left breast 2:00 B position. There are no suspicious microcalcifications or architectural distortion. IMPRESSION: There are 2 small masses in the upper outer left breast. Recommend left breast ultrasound. BI-RADS Category 0: Incomplete: Need additional imaging evaluation. The images were reviewed with computer aided detection. Patient information is entered into the reminder system with a target due date for the next screening mammogram. Mammography is the most sensitive method for finding small breast cancers, but it does not detect the m all and is not a substitute for careful clinical examination. A negative mammogram does not negate a clinically suspicious finding and should not result in delay in biopsying a clinically suspicious a bnormality. "Our facility is accredited by the [employer] Mammography Program." Electronically signed by: Darci Antonio MD (08/03/2020 6:37 PM) [facility]
== END ==
LOC: KCIC MAMMO 09:31
PROVIDERS: ATTEND Family Medicine
DX: Z12.31 Encounter for screening mammogram for malignant neoplasm of breast (principal)
CPT/HCPCS: 77067

== ENCOUNTER → 2020-08-09 | Outpatient (CLI) | payer BC ==
--- NOTE | 2020-08-09 15:15 | RAD ---
Examination: MG DIAGNOSTICUNILAT MAMMO, US BREAST LT History: Reason: spot compression of nodule / Spl. Instructions: / History: Comparison/Correlation: None Findings: Limited ultrasound imaging of the left upper outer breast and left axilla was performed. Th ere is a benign-appearing lymph node measuring up to 1.1 cm x 1 cm x 0.8 cm corresponding to the find ing on mammography. Normal fatty hilum is present. Cortex is slightly lobulated in appearance. No oth er nodules or masses identified. Left axilla is unremarkable. Spot compression imaging of the left upper outer breast and mediolateral view of the left breast were obtained. Mediolateral view of the left breast was obtained. No definite masses identified at the le ft upper outer breast on spot compression imaging although the finding compression which corresponds with a lymph node on ultrasound exam is identified to persist. Scattered fibroglandular densities noted. Impression: BI-RADS Category 3-probably benign. Six-month follow-up mammogram and possibly ultrasound recommended . Electronically signed by: Juan Robledo MD (08/09/2020 3:12 PM) [id number]
== END ==
LOC: US 11:15
PROVIDERS: ATTEND Family Medicine
DX: R92.2 Inconclusive mammogram (principal); N63.20 Unspecified lump in the left breast, unspecified quadrant
CPT/HCPCS: 76641; 77065

== ENCOUNTER → 2021-04-12 | Outpatient (CLI) | payer BC ==
[~2021-04-12] MED LIST changes: -LISI-334 PO; +LISI20TA18 PO
--- NOTE | 2021-04-13 09:01 | KCIC ---
EXAM: 2 views of the right elbow DATE: 04/12/2021 2:00 PM INDICATION: Reason: Polyarthritis, joint pain. / Spl. Instructions: / History: COMPARISON: No Prior FINDINGS: No elbow joint effusion. No acute fracture or dislocation. Small osteophytes ulnohumeral joint. No si gnificant soft tissue swelling. IMPRESSION: 1. No acute fracture or dislocation. 2. Small osteophytes ulnohumeral joint, mild degenerative change. Electronically signed by: Anders Coley MD (04/13/2021 8:59 AM) [id number]
--- NOTE | 2021-04-13 09:07 | KCIC ---
EXAM: AP, lateral and lumbosacral spot views with lateral flexion/extension and bilateral oblique vie ws of the lumbar spine DATE: 04/12/2021 2:00 PM INDICATION: Reason: Polyarthritis, joint pain. / Spl. Instructions: / History: COMPARISON: No Prior FINDINGS: 5 nonrib-bearing lumbar-type vertebral bodies. Vertebral body heights are preserved. Mild disc height loss at L5-S1. Disc heights are otherwise preserved. No spondylolisthesis. Mild facet degenerative c hanges L3-4 and below. On the mild range of motion provided on the flexion/extension images, no dynam ic instability. Vascular calcifications are seen. IMPRESSION: No acute fracture or subluxation. No dynamic instability. Multifocal degenerative change. Electronically signed by: Anders Coley MD (04/13/2021 9:04 AM) [id number]
--- NOTE | 2021-04-13 09:08 | KCIC ---
EXAM: 2 views right knee DATE: 04/12/2021 2:00 PM INDICATION: Reason: Polyarthritis, joint pain. / Spl. Instructions: / History: COMPARISON: No Prior FINDINGS: No acute fracture or dislocation. No joint effusion. Mild lateral compartment joint space narrowing with small osteophytes. IMPRESSION: No acute fracture or dislocation. Moderate right knee joint osteoarthritis with medial compartment involvement. Electronically signed by: Anders Coley MD (04/13/2021 9:05 AM) [id number]
--- NOTE | 2021-04-13 09:11 | KCIC ---
EXAM: AP pelvis, lateral view right hip DATE: 04/12/2021 2:00 PM INDICATION: Reason: Polyarthritis, joint pain. / Spl. Instructions: / History: . COMPARISON: No Prior FINDINGS: Joint spaces are grossly preserved although small marginal osteophytes of the hip joints. Symphysis p ubis degenerative change with cystic change. Calcifications within the pelvis, possibly calcified hemal rine fibroids. No evidence of acute fracture or dislocation. IMPRESSION: Mild hip joint degenerative change bilaterally. Moderate symphysis pubis degenerative change with cystic change. Electronically signed by: Adners Coley MD (04/13/2021 9:09 AM) [id number]
--- NOTE | 2021-04-13 09:37 | KCIC ---
Study: XR SHOULDER_RIGHT 2+ VIEWS Indication: Polyarthritis. Joint pain. Comparison: None. Findings: Alignment is anatomic. No acute fracture. Mild arthrosis at the acromioclavicular joint. No significa nt degenerative changes across the glenohumeral joint. The acromiohumeral interval is within normal l imits. Impression: No acute osseous abnormality. Mild arthrosis at the acromioclavicular joint. Electronically signed by: CLOVER JOVEL MD (04/13/2021 9:35 AM) [id number]
== END ==
LOC: KCIC 13:53
PROVIDERS: ATTEND Family Medicine
DX: M47.816 Spondylosis without myelopathy or radiculopathy, lumbar region (principal); M19.021 Primary osteoarthritis, right elbow; M19.011 Primary osteoarthritis, right shoulder; M16.0 Bilateral primary osteoarthritis of hip; M17.11 Unilateral primary osteoarthritis, right knee; M25.721 Osteophyte, right elbow; N85.8 Other specified noninflammatory disorders of uterus; M25.761 Osteophyte, right knee; M25.861 Other specified joint disorders, right knee
CPT/HCPCS: 72110; 73030; 73070; 73501; 73560